=== PATIENT | female | born 1985 | race Caucasian/White ===

== ENCOUNTER 2020-06-14 14:36 | Emergency (ER) | payer BC ==
[~2020-06-14] VITALS: Ht 165.1 cm; Wt 62.0 kg
[2020-06-14 16:30] LABS: HEPATITIS B SURFACE AB 57.4 mIU/mL
[2020-06-14 17:25] VITALS: BP 123/75
[2020-06-14 17:43] LABS: HEPATITIS B SURFACE ANTIGEN NEGATIVE
[2020-06-16 13:06] LABS: HIV SCREEN 4G Non Reactive (Non Reactive)
== END 2020-06-14 17:26 | disposition home or self-care (01) ==
LOC: ER 14:36
DX: S61.211A Laceration without foreign body of left index finger without damage to nail, initial encounter (principal); W26.8XXA Contact with other sharp object(s), not elsewhere classified, initial encounter; Y93.89 Activity, other specified; Y92.238 Other place in hospital as the place of occurrence of the external cause; Y99.0 Civilian activity done for income or pay
CPT/HCPCS: 36415; 86703; 87389; 99283